=== PATIENT | male | born 1970 | race Caucasian/White ===

== ENCOUNTER 2023-09-12 00:54 | Inpatient (IN) | payer OTHER ==
[~2023-09-12] VITALS: Ht 180.3 cm; Wt 122.0 kg
[2023-09-12] MEDS: CEFTRIAXONE 1GM/50ML 50 ML IV ONE (01:27)
[2023-09-12] MEDS: SODIUM CHLORIDE 0.9% 1000ML BAG (SEPSIS BOLUS) IV ONE (01:27)
[2023-09-12 01:35] LABS: HEMATOCRIT. 37.9 % (42.0-52.0); HEMOGLOBIN. 13.5 g/dL (14.0-18.0); MEAN CORPUSCULAR HEMOGLOBIN 29.6 pg (28.0-32.0); MEAN CORPUSCULAR HGB CONC 35.7 g/dL (31.0-37.0); MEAN PLATELET VOLUME 6.1 fl (7.4-10.4); PLATELET 245 x1000/uL (130-400); RED BLOOD CELL COUNT 4.56 mill/uL (4.7-6.1); RED CELL DISTRIBUTION WIDTH 14.5 % (11.6-14.6); WHITE BLOOD COUNT 8.7 x1000/uL (4.5-11.0)
[2023-09-12 01:37] LABS: DIFFERENTIAL COMMENT 1
[2023-09-12 01:51] LABS: CHLORIDE 102 mEq/L (98-107); POTASSIUM 3.4 mEq/L (3.5-5.1); SODIUM 133 mEq/L (136-145)
[2023-09-12 01:52] LABS: CALCIUM 8.9 mg/dL (8.7-10.4); CARBON DIOXIDE 18 mEq/L (21-32)
[2023-09-12 01:57] LABS: CREATININE 1.5 mg/dL (0.6-1.3); TROPONIN I HIGH SENSITIVITY 9 ng/L (3.0-53); UREA NITROGEN BLOOD 22 mg/dL (9-23)
[2023-09-12 01:58] LABS: PLATELET ESTIMATE NORMAL
[2023-09-12 01:59] LABS: ALANINE AMINOTRANSFERASE 31 IU/L (10-49); ALBUMIN 4.4 g/dL (3.2-4.8); ASPARTATE AMINOTRANSFERASE 31 IU/L (<34); BILIRUBIN TOTAL 0.6 mg/dL (0.1-1.0); PROTEIN TOTAL 7.3 g/dL (6.0-8.3)
[2023-09-12 02:18] LABS: PROTHROMBIN TIME 10.7 sec (9.6-11.0)
[2023-09-12 02:29] LABS: GLUCOSE 275 mg/dL (70-105)
[2023-09-12] MEDS ORDERED: INSULIN GLARGINE 100 UNITS/ML SUBCUT ONE (03:30)
[2023-09-12] MEDS: INSULIN GLARGINE 100 UNITS/ML SUBCUT NR (05:40)
[2023-09-12] MEDS: NOREPINEPHRINE 8MG/250ML PMX 250 ML IV PRN (05:45)
[2023-09-12] MEDS ORDERED: MAGNESIUM/ALUMINUM HYDROXIDE/SIMETHICONE 30ML UDC PO PRN (11:00)
[2023-09-12] MEDS ORDERED: CLONIDINE 0.1MG TABLET PO PRN (11:00)
[2023-09-12] MEDS ORDERED: GUAIFENESIN 200MG/10ML SUGAR FREE UDC PO PRN (11:00)
[2023-09-12] MEDS ORDERED: IPRATROPIUM/ALBUTEROL 0.5-3(2.5)MG/3ML NEB NEB PRN (11:00)
[2023-09-12] MEDS: POTASSIUM CHLORIDE 20MEQ TABLET SR PO NR (11:05)
[2023-09-12] MEDS: SODIUM CHLORIDE 0.9% 1,000 ML IV SCH (11:05)
[2023-09-12 11:20] LABS: PHOSPHORUS 1.5 mg/dL (2.5-4.9)
[2023-09-12 11:23] LABS: T4 FREE 1.14 ng/dL (0.89-1.76)
[2023-09-12 11:24] LABS: THYROID STIMULATING HORMONE 0.6 uIU/mL (0.55-4.78)
[2023-09-12] MEDS: ENOXAPARIN 150MG/ML SYR SUBCUT SCH (13:59)
[2023-09-12] MEDS: ACETAMINOPHEN 325MG TABLET PO PRN ×2 (14:26→18:30)
[2023-09-12 17:05] VITALS: BP 125/59; PULSE 89; RESP 20; TEMP 101.1
[2023-09-12 17:19] VITALS: BP 129/64; PULSE 91; RESP 18; TEMP 99
[2023-09-12] MEDS ORDERED: ENOXAPARIN 30MG/0.3ML SYR SUBCUT SCH (18:00)
[2023-09-12 20:07] VITALS: BP 120/68; PULSE 88; RESP 18; TEMP 98.2
[2023-09-13] VITALS (7 sets, daily range): BP systolic 123–169; BP diastolic 63–83; PULSE 64–95; RESP 18–22; TEMP 96.1–100.2; O2SAT 98
[2023-09-13] MEDS: ONDANSETRON HCL 4MG/2ML INJ IV PRN (03:29)
[2023-09-13 06:17] LABS: CLARITY URINE CLEAR (CLEAR); COLOR URINE YELLOW (YELLOW); GLUCOSE URINE 3+ (NEGATIVE); KETONES URINE 2+ (NEGATIVE); LEUKOCYTE ESTERASE URINE NEGATIVE (NEGATIVE); NITRITE URINE NEGATIVE (NEGATIVE); OCCULT BLOOD URINE TRACE (NEGATIVE); PH URINE 5.5 (4.5-8.0); PROTEIN URINE TRACE (NEGATIVE); SPECIFIC GRAVITY URINE 1.037 (1.005-1.030); UROBILINOGEN URINE 0.2 E.U./dL (0.2-1.0)
[2023-09-13 06:34] LABS: BASOPHILS % 0.4 % (0.0-2.0); EOSINOPHILS % 1.2 % (0.0-5.0); HEMATOCRIT. 35.7 % (42.0-52.0); HEMOGLOBIN. 12.4 g/dL (14.0-18.0); LYMPHOCYTES % 12.3 % (20.0-50.0); MEAN CORPUSCULAR HEMOGLOBIN 29.1 pg (28.0-32.0); MEAN CORPUSCULAR HGB CONC 34.9 g/dL (31.0-37.0); MEAN CORPUSCULAR VOLUME 83.5 fL (80.0-94.0); MEAN PLATELET VOLUME 6.5 fl (7.4-10.4); MONOCYTES % 8.1 % (2.0-8.0); PLATELET 206 x1000/uL (130-400); RED BLOOD CELL COUNT 4.27 mill/uL (4.7-6.1); WHITE BLOOD COUNT 6.5 x1000/uL (4.5-11.0)
[2023-09-13 06:57] LABS: CARBON DIOXIDE 18 mEq/L (21-32); CHLORIDE 104 mEq/L (98-107); SODIUM 135 mEq/L (136-145)
[2023-09-13 06:59] LABS: CALCIUM 8.4 mg/dL (8.7-10.4)
[2023-09-13 07:03] LABS: GLUCOSE 203 mg/dL (70-105); UREA NITROGEN BLOOD 16 mg/dL (9-23)
[2023-09-13 07:06] LABS: PHOSPHORUS 2.3 mg/dL (2.5-4.9)
[2023-09-13 07:15] LABS: *AMPHETAMINES SCREEN URINE NEGATIVE (NEGATIVE); *BARBITURATES SCREEN URINE NEGATIVE (NEGATIVE); *BENZODIAZEPINES SCREEN URINE NEGATIVE (NEGATIVE); *COCAINE SCREEN URINE NEGATIVE (NEGATIVE); CANNABINOID URINE SCREEN NEGATIVE (NEGATIVE); ECSTASY MDMA SCREEN URINE NEGATIVE (NEGATIVE); METHADONE URINE SCREEN NEGATIVE (NEGATIVE); OPIATES URINE SCREEN NEGATIVE (NEGATIVE); PHENCYCLIDINE URINE SCREEN NEGATIVE (NEGATIVE)
[2023-09-13] MEDS: POVIDONE-IODINE 10% TOPICAL SOLN 240ML TOP NR (07:30)
[2023-09-13 08:13] LABS: BACTERIA URINE NONE SEEN; RBC URINE 0-2 /hpf (0-2); SQUAMOUS EPITHELIAL CELL URINE NONE SEEN /lpf (RARE/1+); WBC URINE NONE SEEN /hpf (0-2)
[2023-09-13] MEDS: ENOXAPARIN 120MG/0.8ML SYR SUBCUT SCH (09:40)
[2023-09-13] MEDS ORDERED: CEFEPIME 1GM IN DEXT 5% 50ML IV SCH (09:45)
[2023-09-13] MEDS: VANCOMYCIN 2,000 MG in DEXT 5% WATER 500 ML IV NR (11:19)
[2023-09-13] MEDS: CEFEPIME 1GM/50ML 50 ML IV SCH (11:19)
[2023-09-13] MEDS ORDERED: CEFEPIME 2GM/100ML 100 ML IV SCH (20:00)
[2023-09-13] MEDS ORDERED: VANCOMYCIN 1.25GM PMX (XELLIA) 250 ML IV SCH (23:00)
== END 2023-09-13 20:47 | disposition short-term general hospital (02) | DRG 872 ==
LOC: ER 00:54 → 5WST 03:52 → EDBEDREQSVC 05:44 → 7WST 17:24
PROVIDERS: ADMIT Internal Medicine; ATTEND Internal Medicine
DX: A41.9 Sepsis, unspecified organism (principal); L03.115 Cellulitis of right lower limb; E87.1 Hypo-osmolality and hyponatremia; N17.9 Acute kidney failure, unspecified; E78.5 Hyperlipidemia, unspecified; E11.621 Type 2 diabetes mellitus with foot ulcer; B96.89 Other specified bacterial agents as the cause of diseases classified elsewhere; D64.9 Anemia, unspecified; E87.6 Hypokalemia; I48.91 Unspecified atrial fibrillation; E11.65 Type 2 diabetes mellitus with hyperglycemia; I12.9 Hypertensive chronic kidney disease with stage 1 through stage 4 chronic kidney disease, or unspecified chronic kidney disease; E11.22 Type 2 diabetes mellitus with diabetic chronic kidney disease; N18.9 Chronic kidney disease, unspecified; Z89.421 Acquired absence of other right toe(s)
CPT/HCPCS: 36415; 71045; 73630; 73721; 80048; 80053; 80061; 80305; 80320; 81003; 82962; 83036; 83605; 83735; 84100; 84145; 84439; 84443; 84484; 85025; 87070; 87077; 87186; 93005; 93306; 93923; 93970; 99291; J0692; J0696; J1650; J1815; J2405; J3370; J3490; J7030; J7060; G0480